=== PATIENT | male | born 1960 | race Caucasian/White ===

== ENCOUNTER 2021-10-25 00:40 | Day surgery (SDC) | payer BC, SELFPAY ==
[2021-10-10 13:10] VITALS: BMI 21.4
[2021-10-25 10:45] VITALS: BP 116/73; PULSE 56; RESP 18; TEMP 36.6; O2SAT 100
[2021-10-25] MEDS: LACTATED RINGERS 1,000 ML 150 ML IV CONT (10:54)
--- NOTE | 2021-10-25 10:55 | WPDGICN ---
Assessment and Plan Assessment and plan (1) Encounter for screening colonoscopy: Code(s): Z12.11 - Encounter for screening for malignant neoplasm of colon Status: Acute Assessment and Plan: Patient presents for screening colonoscopy. He appears to be at average risk for colon polyps. Further recommendations will be given after endoscopy. GI Consult Note Consult date/time: 10/25/21 10:55 HPI: J Carlos Corrales is a 61 year old male Presents for screening colonoscopy. Patient's current weight appetite and bowel movements are normal. He denies abdominal pain. He has had no bleeding. Family history is noncontributory. He desires neoplasia screening colonoscopy. Review of Systems Review of Systems: All systems reviewed & are unremarkable except as noted in HPI and below PMFSH Social History Social History Smoking status: Never smoker Alcohol intake: current Drinks per week: 1 Substance use: current Substance use type: marijuana Last use: for sleep Living arrangements: with family Spiritual care concerns: No Meds Home Medications and Allergies Home Medications Medication Instructions Recorded Confirmed Type multivit with min-folic acid 1 tablet PO DAILY 10/10/21 10/25/21 History [Adult One Daily Multivitamin] Allergies Allergy/AdvReac Type Severity Reaction Status Date / Time No Known Allergies Allergy Verified 10/25/21 10:44 Vital Signs Vital Signs - 24 hr 10/25/21 10:45 Temperature 98 F Pulse Rate 56 L Respiratory Rate 18 Blood Pressure 116/73 Pulse Oximetry 100 Exam Narrative: Physical exam reveals patient be alert. Vital signs stable. HEENT exam is unremarkable. Patient is anicteric. Lungs are clear to auscultation and percussion. Heart is without murmur or extra sounds. Abdominal exam bowel sounds are present soft nontender with no organomegaly. Digital external rectal exam is normal.
--- NOTE | 2021-10-25 11:34 | WPDANESEPPF ---
Anes - Initial Pre Proc Eval Procedure: Operation Date: 10/25/21 13:00 Proposed Procedures p Screening Colonoscopy - Lewis Carrizales MD Date/Time: 10/25/21 11:34 Surgeon: Lewis Carrizales MD Pre Op Diagnosis: neoplasm screening Patient Data Age: 61 Gender: M Height: 1.75 m Weight: 64 kg Last Vital Signs Temp 98 F 10/25/21 10:45 Pulse 56 L 10/25/21 10:45 Resp 18 10/25/21 10:45 BP 116/73 10/25/21 10:45 Pulse Ox 100 10/25/21 10:45 Allergies Allergy/AdvReac Type Severity Reaction Status Date / Time No Known Allergies Allergy Verified 10/25/21 10:44 Home Medications Medication Instructions Recorded Confirmed Type multivit with min-folic acid 1 tablet PO DAILY 10/10/21 10/25/21 History [Adult One Daily Multivitamin] Patient hx anesthesia problems: none Family hx anesthesia problems: none Results Review: All pre-operative results and documents have been reviewed as part of the pre-operative evaluation. [facility] Social History Social History Smoking status: Never smoker Alcohol intake: current Drinks per week: 1 Substance use: current Substance use type: marijuana Last use: for sleep Living arrangements: with family Spiritual care concerns: No Anes - Eval Final PreProcedure Day of Procedure 10/25/21 11:34 Patient weight: normal Heart: regular rate and rhythm Lungs: clear to auscultation Airway: Mallampati scale class II Neurological: alert and oriented Last oral intake: >/= 8 hours ASA classification: II Emergent: no Anesthetic plan: proceed Anesthesia type and monitoring: general GIVS and standard monitoring Results Review: All pre-operative results and documents have been reviewed as part of the pre-operative evaluation. Informed Consent: The patient's anesthetic plan and its attendant risks and benefits were discussed with the patient/family/POA. Questions were solicited and answers provided to the satisfaction of the patient/family/POA.
[2021-10-25 12:16] VITALS: BP 130/83; PULSE 51; RESP 19; O2SAT 100
[2021-10-25 12:26] VITALS: BP 130/83; PULSE 53; RESP 19; O2SAT 100
[2021-10-25 12:36] VITALS: BP 139/86; PULSE 62; RESP 19; O2SAT 100
== END 2021-10-25 12:42 | disposition home or self-care (01) ==
PROVIDERS: PCP Student in an Organized Health Care Education/Training Program; Visit Provider Internal Medicine Gastroenterology
PROC: 0DJD8ZZ Inspection of Lower Intestinal Tract, Via Natural or Artificial Opening Endoscopic (ICD-10-PCS; CPT 45378; principal; 2021-10-25 13:00)
DX: Z12.11 Encounter for screening for malignant neoplasm of colon (principal); K64.8 Other hemorrhoids; K57.30 Diverticulosis of large intestine without perforation or abscess without bleeding; F12.90 Cannabis use, unspecified, uncomplicated
CPT/HCPCS: 45378; J2001; J2704; J7120

== ENCOUNTER → 2021-11-09 08:55 | Outpatient (CLI) | payer BC, SELFPAY ==
--- NOTE | ~2021-11-09 | US_ITS ---
EXAMINATION: US right upper quadrant EXAM DATE: 11/09/2021 09:15 INDICATION: Elevated bilirubin . TECHNIQUE: Multiple grayscale and Doppler images of the abdomen right upper quadrant were obtained (gigi king a technologist who performed the scan) and subsequently reviewed. There is no prior study for jovita german. FINDINGS: The pancreatic head and body are normal in appearance. The pancreatic tail is not visualized. The l iver has normal echogenicity and contour. There are no focal liver lesions identified. There is no evidence of intrahepatic biliary duct dilation. Portal venous flow was seen in the hepatopedal, nor mal direction and has normal Doppler waveform. No right-sided hydronephrosis. Common bile duct measures 3 mm, which is normal. The gallbladder wall is normal in thickness, with ex pected amount of distention. No sonographic evidence of pericholecystic fluid. There is a gallbladd er polyp measuring 5 mm, not requiring any further follow-up. Technologist performing exam reports p atient did not demonstrate sonographic Navarrete's sign. Please note that this sign is less reliable in patients who have received pain medication. IMPRESSION: 1. Small gallbladder polyp. Reviewed, dictated and finalized at location A. PLATER IMPRESSION: 1. Small gallbladder polyp.
== END ==
PROVIDERS: PCP Student in an Organized Health Care Education/Training Program; Visit Provider Student in an Organized Health Care Education/Training Program
DX: R17 Unspecified jaundice (principal); K82.4 Cholesterolosis of gallbladder
CPT/HCPCS: 76705